=== PATIENT | female | born 1995 | race Asian ===

== ENCOUNTER 2024-09-18 19:51 | Emergency (ER) | payer OTHER ==
[~2024-09-18] VITALS: Ht 165.1 cm; Wt 64.9 kg
[2024-09-18 20:40] LABS: BASOPHILS % (AUTO) 0.3 % (0.0-2.0); EOSINOPHILS # (AUTO) 0.1 K/uL (0.0-0.7); EOSINOPHILS % (AUTO) 1.8 % (0.0-6.0); HEMATOCRIT 42 % (33-45); HEMOGLOBIN 14.1 g/dL (11.5-14.8); LYMPHOCYTES # (AUTO) 1.9 K/uL (0.8-4.8); LYMPHOCYTES % (AUTO) 39.5 % (20.0-44.0); MEAN CORPUSCULAR HEMOGLOBIN 31 PG (26.0-33.0); MEAN CORPUSCULAR HGB CONC 34 g/dl (31.0-36.0); MEAN CORPUSCULAR VOLUME 93 fL (82-100); MONOCYTES # (AUTO) 0.4 K/uL (0.1-1.30); MONOCYTES % (AUTO) 8.4 % (2.0-12.0); NEUTROPHILS # (AUTO) 2.4 K/uL (1.8-8.9); PLATELET COUNT (AUTO) 217 K/uL (150-450); RED BLOOD CELL COUNT(AUTO) 4.53 MIL/uL (4.0-5.2); RED CELL DISTRIBUTION WIDTH 12.4 % (11.5-15.0); WHITE BLOOD COUNT (AUTO) 4.7 K/uL (4.3-11.0)
[2024-09-18] MEDS: IV NS 0.9% 1,000 ML BAG IV ONE (20:49)
[2024-09-18 20:58] LABS: CALCIUM, SERUM 9.3 mg/dL (8.5-10.1); CARBON DIOXIDE 31 mmol/L (21-32); CHLORIDE 104 mmol/L (98-107); CREATININE 0.6 mg/dL (0.6-1.3); GLUCOSE 94 mg/dL (74-106); POTASSIUM 3.6 mmol/L (3.5-5.1); SODIUM SERUM 143 mmol/L (136-145); UREA NITROGEN, BLOOD 14 mg/dL (7-18)
[2024-09-18] MEDS: MORPHINE SULFATE INJ 2 MG/ML DISP.SYRIN IV ONE (21:04)
[2024-09-18] MEDS: ONDANSETRON HCL/PF 4 MG/2 ML VIAL IVP ONE (21:04)
[2024-09-18 21:06] LABS: ALANINE AMINOTRANSFERASE 21 U/L (12-78); ALBUMIN 4.3 g/dL (3.4-5.0); ALKALINE PHOSPHATASE 63 U/L (46-116); ASPARTATE AMINOTRANSFERASE 16 U/L (15-37); BILIRUBIN,DIRECT 0.1 mg/dL (0.0-0.2); BILIRUBIN,TOTAL 0.3 mg/dL (0.2-1.0); LIPASE 62 U/L (16-77); TOTAL PROTEIN, SERUM 8.4 g/dL (6.4-8.2)
[2024-09-18] MEDS ORDERED: ONDA4TAB5 PO (21:30)
[2024-09-18 21:44] LABS: APPEARANCE,URINE Cloudy (CLEAR); BILIRUBIN,URINE Negative (NEGATIVE); BLOOD, URINE Trace-intact Ery/uL (NEGATIVE); COLOR,URINE YELLOW (YELLOW); KETONES,URINE Negative (NEGATIVE); LEUKOCYTE ESTERASE ,URINE Negative (NEGATIVE); NITRITE, URINE Negative (NEGATIVE); PROTEIN,URINE Negative (NEGATIVE); UGLUCOSE Negative (NEGATIVE); UROBILINOGEN,URINE 0.2 EU/dL (0.2)
[2024-09-18] MEDS ORDERED: FLUO15CR12 TP (21:47)
[2024-09-18 21:50] VITALS: BP 117/67; TEMP 98; O2SAT 100
[2024-09-18 21:50] LABS: PREGNANCY TEST URINE QUAL NEGATIVE (NEGATIVE)
[2024-09-18 22:25] LABS: ADD URINE CULTURE YES; BACTERIA,URINE Moderate /HPF (None Seen); RBC,URINE 0-2 /HPF (0-2)
[2024-09-18 22:26] LABS: SQUAMOUS EPITHELIAL CELL,UR Moderate /HPF (None Seen)
== END 2024-09-18 21:51 | disposition home or self-care (01) ==
LOC: ER 19:54
DX: R11.2 Nausea with vomiting, unspecified (principal); R42 Dizziness and giddiness; R10.13 Epigastric pain; R51.9 Headache, unspecified; F41.9 Anxiety disorder, unspecified
CPT/HCPCS: 99285; 96374; 76705; 70450; 96361; 96375; 93005; 85025; 80048; 87086; 83690; 80076; 84703; 81001; 36415; 84484; J2405; J7030; J2270

== ENCOUNTER 2024-10-30 14:02 | Emergency (ER) | payer OTHER ==
[~2024-10-30] VITALS: Ht 165.1 cm; Wt 59.0 kg
[~2024-10-30 14:02] MED LIST: FLUO15CR12 TP; ONDA4TAB5 PO
[2024-10-30 14:40] VITALS: TEMP 97.9
[2024-10-30] MEDS: ACETAMINOPHEN ES 500 MG TABLET PO ONE (15:00)
[2024-10-30] MEDS: IV NS 0.9% 1,000 ML BAG IV ONE (15:00)
[2024-10-30] MEDS ORDERED: diphenhydrAMINE HCL 50 MG/ML VIAL ONE (15:05)
[2024-10-30] MEDS ORDERED: METOCLOPRAMIDE HCL 10 MG/2 ML VIAL ONE (15:05)
[2024-10-30] MEDS ORDERED: ACETAMINOPHEN ES 500 MG TABLET ONE (15:06)
[2024-10-30] MEDS: diphenhydrAMINE HCL 50 MG/ML VIAL IV ONE (15:10)
[2024-10-30] MEDS: METOCLOPRAMIDE HCL 10 MG/2 ML VIAL IV ONE (15:15)
[2024-10-30 15:20] LABS: BASOPHILS % (AUTO) 0.2 % (0.0-2.0); EOSINOPHILS # (AUTO) 0.1 K/uL (0.0-0.7); EOSINOPHILS % (AUTO) 1.7 % (0.0-6.0); HEMATOCRIT 38 % (33-45); LYMPHOCYTES # (AUTO) 1.8 K/uL (0.8-4.8); LYMPHOCYTES % (AUTO) 31.5 % (20.0-44.0); MEAN CORPUSCULAR HEMOGLOBIN 31 PG (26.0-33.0); MEAN CORPUSCULAR HGB CONC 34 g/dl (31.0-36.0); MEAN CORPUSCULAR VOLUME 92 fL (82-100); MONOCYTES # (AUTO) 0.4 K/uL (0.1-1.30); NEUTROPHILS # (AUTO) 3.3 K/uL (1.8-8.9); NEUTROPHILS % (AUTO) 59.6 % (43.0-81.0); PLATELET COUNT (AUTO) 212 K/uL (150-450); RED BLOOD CELL COUNT(AUTO) 4.16 MIL/uL (4.0-5.2); RED CELL DISTRIBUTION WIDTH 12.8 % (11.5-15.0); WHITE BLOOD COUNT (AUTO) 5.6 K/uL (4.3-11.0)
[2024-10-30 15:35] LABS: CALCIUM, SERUM 8.5 mg/dL (8.5-10.1); CREATININE 0.8 mg/dL (0.6-1.3); POTASSIUM 3.5 mmol/L (3.5-5.1)
[2024-10-30 17:13] VITALS: BP 125/85; O2SAT 99
== END 2024-10-30 17:10 | disposition home or self-care (01) ==
LOC: ER 14:24
DX: R51.9 Headache, unspecified (principal); R11.0 Nausea
CPT/HCPCS: 99284; 96374; 96361; 96375; 85025; 80048; 36415; J1200; J2765; J7030

== ENCOUNTER 2024-11-01 17:26 | Emergency (ER) | payer OTHER ==
[~2024-11-01] VITALS: Ht 165.1 cm; Wt 64.9 kg
[2024-11-01 19:06] VITALS: BP 124/71; TEMP 97.9; O2SAT 99
[2024-11-01] MEDS ORDERED: SUMA50TA PO (19:25)
== END 2024-11-01 19:37 | disposition home or self-care (01) ==
LOC: ER 17:46
DX: R51.9 Headache, unspecified (principal); Z91.09 Other allergy status, other than to drugs and biological substances

== ENCOUNTER 2024-12-17 17:19 | Emergency (ER) | payer OTHER ==
[~2024-12-17] VITALS: Ht 165.1 cm; Wt 63.5 kg
[~2024-12-17 17:19] MED LIST changes: +SUMA50TA PO
[2024-12-17 17:37] VITALS: BP 121/76; TEMP 98.2; O2SAT 98
[2024-12-17] MEDS ORDERED: IBUP-1490 PO (20:52)
[2024-12-17] MEDS ORDERED: METH-647 PO (20:52)
== END 2024-12-17 21:01 | disposition home or self-care (01) ==
LOC: ER 17:19
DX: M62.838 Other muscle spasm (principal); M25.511 Pain in right shoulder; M54.2 Cervicalgia; M54.6 Pain in thoracic spine
CPT/HCPCS: 72040-TC; 72074-TC; 73030-TC